=== PATIENT | male | born 1990 | race Caucasian/White ===

== ENCOUNTER 2018-10-18 16:22 | Inpatient (IN) | payer BC ==
[2018-10-18] MEDS ORDERED: Enoxaparin Sodium 60 MG/0.6 ML SYRINGE ONE ×2 (17:45→17:47)
[2018-10-18] MEDS ORDERED: Enoxaparin Sodium 100 MG/ML SYRINGE ONE (17:45)
[2018-10-18] MEDS ORDERED: Nitroglycerin 2% Ointment 1 INCH/1 GM Packet ONE (17:45)
[2018-10-18] MEDS ORDERED: hydrALAZINE 20 MG/ML VIAL SLOW IVP PRN (18:46)
[2018-10-18 18:54] LABS: Troponin I 0.401 ng/mL (< 0.028)
--- NOTE | 2018-10-18 19:44 | HP ---
PRIMARY CARE PROVIDER: None. CHIEF COMPLAINT: Serious chest pain. HISTORY OF PRESENT ILLNESS: This is a 28-year-old male with history of tobacco use, hypertension as a teenager (not currently on medications), family history of early NV in mom, who presents to the emergency room in [place] with a complaint of chest pain. The patient reports onset was 4 days ago and describes it as substernal and onset that occurred after he was fishing for the day. He states he thought that he "pulled my back" and noted that the symptoms eased up. Three days ago, he decreased his activity and states that it simply felt "kind of weird." Two days ago at work with the [employer], he had pain associated with any activity. States that there was intermittent worsening, but really no resolution and the symptoms were worse last night. He describes it as a "need to pop my back" sensation of both pressure and sharp pain that starts in the center of his chest and radiates to his back. He took nitroglycerin and states the symptoms would be relieved for about 10 minutes and then returned. He denies any nausea, vomiting, or abdominal pain. Denies any history of back pain. Also denies any reflux symptoms or headaches. He does report shortness of breath when the pain is worse and difficulty with taking a deep breath because it worsens the pain. In [place], the patient found to be hypertensive, tachycardic with an indeterminate troponin and he received nitroglycerin and started on a drip, aspirin 324 mg, Lopressor 5 mg IV and transferred here. In the emergency room here, the patient remained hypertensive and tachycardic and received Lovenox 1 mg/kg, nitro paste, and the nitroglycerine drip was discontinued and hospitalist called for admission. ALLERGIES: NO KNOWN DRUG ALLERGIES. MEDICATIONS: None. PAST MEDICAL HISTORY: 1. Hypertension as a teenager. The patient reports he does not know why he stopped medication. 2. Obesity. PAST SURGICAL HISTORY: Tonsillectomy. SOCIAL HISTORY: He quit smoking and he used one can of tobacco per day. Uses alcohol monthly. He is and is a full code, and his is his surrogate decision maker. FAMILY HISTORY: An uncle who of a massive NV at 50, mom who had her first NV at 36, dad is healthy. REVIEW OF SYSTEMS: Positive for shortness of breath with exertion and worsening chest pain. Negative for nausea, vomiting, or abdominal pain. All remaining review of systems are reviewed and negative. PHYSICAL EXAMINATION: VITAL SIGNS: Blood pressure is 148/80, pulse 98, respirations 18, sats 99% on room air, and temperature 99.3. GENERAL: Awake, alert, and responsive, in no apparent distress. Able to speak in full sentences. HEENT: Tympanic membranes are translucent. Oral mucosa is pink and moist. NECK: Supple and nontender. LYMPHATICS: No palpable cervical or supraclavicular lymphadenopathy. LUNGS: Clear to auscultation with good air movement. HEART: Normal S1 and S2. Regular rate and rhythm. No audible murmurs. ABDOMEN: Soft with present bowel sounds. Nontender, nondistended. EXTREMITIES: No clubbing, cyanosis, or edema. VASCULAR: 2+ dorsalis pedis pulses. SKIN: No visible rashes. NEUROLOGIC: No focal deficits. PSYCHIATRIC: Appears euthymic. IMAGING DATA: EKGs personally reviewed from [place] and here, sinus rhythm , normal axis, normal intervals. No ST changes. Tachycardic to 101. LABORATORY DATA: Labs reviewed. CBC; 11, 15.4, 47.9, 309 with 67% neutrophils , 23% lymphocytes. Renal panel; 139, 3.9, 105, 25, 12, 0.97, 98. LFTs negative. Troponin 0.155. BNP less than 10. Lipase 27. Urine drug screen negative. Chest x-ray is personally reviewed. No acute abnormality. IMPRESSION: 1. Ongoing chest pain in a patient with cardiac risk factors of history of hypertension, and family history of early myocardial infarction. Symptoms have been ongoing for 4 days and troponin is in the indeterminate range, with a negative D-dimer. Cardiac with normal EKG and cardiac etiology, this is reassuring. 2. History of hypertension, currently hypertensive and tachycardic. 3. Tobacco use. 4. Obesity. PLAN: 1. Observation status in the hospital. 2. Obtain troponins and cardiac stress test tomorrow. 3. Check lipids in the morning, initiate beta billy therapy, manage blood pressure and continue the nitro paste. Prn hydralazine for significantly elevated blood pressures. 4. Tobacco cessation encouraged. 5. The patient encouraged to follow up with a primary care provider for routine medical care. 6. DVT prophylaxis. He is ambulatory. 7. GI prophylaxis, not indicated. 8. Code status is full and surrogate decision maker is the patient's . 9. Discussed with the patient and his . If any abnormalities on telemetry monitoring and a stress test, Cardiology consultation will be warranted. 10. The patient is at high risk given current presentation. 11. No questions or further needs at end of evaluation. Addendum - after dictation, 2nd troponin is positive at 0.4. Pt/ updated with this, and plan changed as follows: 1. d/c stress test 2. NPO after midnight and cardiology consultation with anticipated catheterization 3. Hold further lovenox due to anticipated cath tomorrow 4. Obtain lipid panel with next blood draw and start statin 5. If bp not controlled (when pt was updated his systolic pressure was 110's) - consider adding ROMULO-I. No questions or further needs at end of update - remains at high risk. Job ID: [id number] MTDD
[2018-10-18 20:50] LABS: Cardiac Risk 8.3 (Less than 4.5)
[2018-10-18 20:54] LABS: Troponin I 0.523 ng/mL (< 0.028)
[2018-10-18] MEDS: Nitroglycerin 2% Ointment 1 INCH/1 GM Packet TOP SCH (22:10)
[2018-10-18] MEDS: Acetaminophen 325 MG TAB PO PRN (22:10)
[2018-10-18] MEDS: Metoprolol Tartrate 25 MG TAB PO SCH (22:10)
[2018-10-18] MEDS: Melatonin 3 MG TAB PO PRN (22:10)
[2018-10-18] MEDS: Atorvastatin Calcium 40 MG TAB PO SCH (22:10)
[2018-10-18 23:27] VITALS: BMI 53.2
[2018-10-19 05:26] LABS: #Basophils 0.1 thou/uL (0.0-0.2); #Eosinphils 0.4 thou/uL (0.0-0.7); #Lymphocytes 3.8 thou/uL (1.20-3.40); #Monocytes 0.8 thou/uL (0.11-0.59); #Neutrophils 6.5 thou/uL (1.40-6.50); %Basophils 0.6 % (0.0-1.0); %Eosinophils 3.3 % (0.0-10.0); %Lymphocytes 32.9 % (21.0-51.0); %Monocytes 6.6 % (0.0-10.0); %Neutrophils 56.6 % (42.0-75.0); Hemoglobin 14.6 g/dL (14.0-18.0); Mean Corpuscular Hemoglobin 29.6 pg (27.0-31.0); Mean Corpuscular Volume 89.7 fL (78.0-98.0); Mean Platelet Volume 7.8 fL (7.4-10.4); Platelet Count 277 thou/uL (130-400); RBC Distribution Width 12.4 % (11.5-14.5); Red Blood Cell (RBC) Count 4.94 mill/uL (4.70-6.10); White Blood Cell (WBC) Count 11.4 thou/uL (4.8-10.8)
[2018-10-19] MEDS: Nitroglycerin 2% Ointment 1 INCH/1 GM Packet TOP SCH ×3 (05:48→20:45)
[2018-10-19] MEDS: Sodium Chloride 0.9% 1,000 ML IV SCH ×2 (05:49→15:59)
[2018-10-19 05:50] LABS: Anion Gap 9 mmol/L (10-20); BUN (Urea Nitrogen) 13 mg/dL (8.9-20.6); Calc. Creatinine Clearance 269 mL/min (70-130); Calcium 9.1 mg/dL (7.8-10.44); Carbon Dioxide 28 mmol/L (22-29); Chloride 104 mmol/L (98-107); Estimated GFR-MDRD 86; Glucose 98 mg/dL (70-105); Sodium 137 mmol/L (136-145)
[2018-10-19] MEDS: Aspirin 325 mg Enteric Coated Tablet PO SCH (08:04)
[2018-10-19] MEDS: Metoprolol Tartrate 25 MG TAB PO SCH ×2 (08:04→20:45)
[2018-10-19] MEDS ORDERED: Iopamidol 370 76% 100 ML VIAL ONE (08:55)
--- NOTE | 2018-10-19 09:51 | PDOC.CTH ---
Cardiology Progress Note - Objective Vital Signs Temp Pulse Resp BP Pulse Ox 10/19/18 07:27 97.9 F 81 18 126/69 96 10/19/18 03:00 97.5 F L 72 16 106/56 L 97 Weight 178.035 kg 10/18/18 10/19/18 10/20/18 06:59 06:59 06:59 Intake Total 300 Balance 300 - Labs Result Diagrams: 10/19/18 04:38 10/19/18 04:38 Troponin/CKMB Troponin I 0.523 ng/mL (< 0.028) H* 10/18/18 20:04 - Assessment/Plan HPI: This is a 28 year old M who comes in with exertional chest pain which started 5 days ago. He states that when walking or doing work the pain comes on, pressure/ sharp, substernal, radiating to the back, severe enough to make him sit down, then resolves with 10 minutes of rest. Yesterday while at work the pain came on when he was getting up into a truck and resolved, then the pain came on again while he was at rest in the cab which prompted him to go to the Emergency department. His significant other is a EMT and had nitroglycerin which he had been using and makes it feel better. He is having no chest pain at this time. He is a former smoker, quit 1 year ago, 10 pack-year smoking history. He does use chewing tobacco. He was diagnosed with HTN as a teenager but quit taking medications as he did not need them. His mother had a CABG at age 36, paternal uncle from [place] at age 50. PMH: Obesity, HTN in teens PSH: T&A Meds: none Allergies: NKDA Soc Hx: 10 pack-year smoking history, quit 1 year ago, current chewing tobacco, social drinker, no drugs Fm Hx: Mother CABG 36, paternal uncle from [place] age 50 REVIEW OF SYSTEMS: Gen: no fever, chills, or sweats Neuro: no numbness/tingling, no weakness, denies headache Eyes: no visual changes ENT: no hearing changes, no sore throat, no runny nose Resp: no cough, no SOB, no wheeze Card: see hpi GI: no N/V/D, no abdominal pain MSK: no myalgias, no joint pain/stiffness Skin: no rash, no erythema PHYSICAL EXAMINATION: General: NAD, alert and oriented x3 HEENT: PERRLA, EOMI, normal sclera, oropharynx without erythema or exudate Neck: Supple. Full ROM. Heart/Cardiovascular System: RRR, Cap refill < 3 seconds, no rub, no murmur Lungs/Respiratory System: clear to auscultation bilaterally. No increased work of breathing. Room air. Abdomen/Gastro-Intestinal System: no abdominal tenderness, normal bowel sounds, no masses, no organomegaly, obesity Extremities: Warm extremities. No cyanosis or edema. Neuro: No gross deficits appreciated. CN 2-12 grossly intact Psychiatry: Awake, Alert and cooperative with exam Skin: No lesions, rashes, or ulcers Musculoskeletal: Full ROM A/P: # Stable Angina, suspect type I [place] - Trop 0.155-> 0.401-> 0.523 - EKG t inv in V1, otherwise no Q waves or ST changes - risk factors: strong family history, smoker, obesity, hx of HTN - received therapeutic lovenox in ED, will hold and plan for heart cath pending Dr. Brent marcos, see note to follow - D-dimer neg, no signs of infection, dissection unlikely given age, normal BPs and resolution of pain
[2018-10-19] MEDS: Acetaminophen 325 MG TAB PO PRN (11:19)
--- NOTE | 2018-10-19 12:39 | PDOC.PN ---
- Subjective Encounter Start Date: 10/19/18 (f/u nstemi) Encounter Start Time: 12:36 Subjective: Pt c/o some headache, nitropaste is in place. Had some brief CP -: that resolved with changing positions. Denies any new concerns - Objective Resuscitation Status - Order Detail: 10/18/18 18:44 Resuscitation Status Routine Resuscitation Status: FULL: Full Resuscitation Vital Signs & Weight: Vital Signs (12 hours) Temp Pulse Resp BP Pulse Ox 10/19/18 11:11 97.8 F 71 16 121/58 L 98 10/19/18 07:27 97.9 F 81 18 126/69 96 10/19/18 03:00 97.5 F L 72 16 106/56 L 97 Weight Weight 392 lb 8 oz I&O: 10/18/18 10/19/18 10/20/18 06:59 06:59 06:59 Intake Total 300 Balance 300 Result Diagrams: 10/19/18 04:38 10/19/18 04:38 EKG Reviewed by me: Yes (tele - sinus 70-100's) Phys Exam - Physical Examination Constitutional: NAD Respiratory: no wheezing, no rales, no rhonchi, clear to auscultation bilateral Cardiovascular: RRR, no significant murmur Gastrointestinal: soft, non-tender, no distention, positive bowel sounds Musculoskeletal: no edema Neurological: non-focal, moves all 4 limbs Psychiatric: normal affect Dx/Plan (1) NSTEMI (non-ST elevated myocardial infarction) Code(s): I21.4 - NON-ST ELEVATION (NSTEMI) MYOCARDIAL INFARCTION Status: Acute (2) Dyslipidemia Code(s): E78.5 - HYPERLIPIDEMIA, UNSPECIFIED Status: Acute (3) Tobacco abuse Code(s): Z72.0 - TOBACCO USE Status: Chronic (4) Morbid obesity Code(s): E66.01 - MORBID (SEVERE) OBESITY DUE TO EXCESS CALORIES Status: Chronic (5) Hypertension Code(s): I10 - ESSENTIAL (PRIMARY) HYPERTENSION Status: Chronic - Plan * Cardiology consult - anticipate cath this afternoon * on statin, aspirin, beta-billy and nitropaste. bp's well controlled * * tobacco abuse - pt counseled * morbid obesity - discussed increasing activity * * dvt prophy - received full dose lovenox last night * gi prophy - not indicated * code status full * * reviewed plan of care with patient, no questions or further needs at end of eval.
[2018-10-19] MEDS ORDERED: Lidocaine 1% (PF) 30 ML VIAL ONE (14:20)
[2018-10-19] MEDS ORDERED: Nitroglycerin 100MG/250ML BOT 250 ML ONE (14:26)
[2018-10-19] MEDS ORDERED: Heparin 10,000 UNITS/1 ML VIAL ONE (14:26)
[2018-10-19] MEDS ORDERED: Verapamil 5 MG/2 ML VIAL ONE (14:26)
[2018-10-19] MEDS ORDERED: Fentanyl 100 MCG/2 ML VIAL ONE (14:45)
[2018-10-19] MEDS ORDERED: Midazolam HCl 2 mg/2 ml Vial ONE (14:45)
[2018-10-19] MEDS ORDERED: Sodium Chloride 0.9% 200 ML IV PRN (15:26)
[2018-10-19] MEDS ORDERED: Acetaminophen/Codeine 30-300mg Tablet PO PRN (15:26)
[2018-10-19] MEDS ORDERED: Nitroglycerin 0.4 MG TAB (25 Tab Bottle) SL PRN (15:26)
--- NOTE | 2018-10-19 18:31 | CON ---
DATE OF CONSULTATION: 10/19/2018 REASON FOR CONSULTATION: Non-STEMI. HISTORY OF PRESENT ILLNESS: Mr. Lewis is a very pleasant 28-year-old white gentleman, who comes to the hospital for chest pain. He has been noticing a lot more chest pain recently when he exerts himself, but in the last 2 days, he actually felt pain at rest, so he decided to come in for evaluation. He was admitted and troponins have kept rising, so Cardiology is being consulted for this. On my evaluation, he is chest pain free. PAST MEDICAL HISTORY: None. PAST SURGICAL HISTORY: Tonsillectomy. FAMILY HISTORY: Uncle of an IA at age 50. Mother had first IA at age 36 and has bypass. Father is healthy otherwise. SOCIAL HISTORY: Quit smoking, but he has been continuing to use chewing tobacco. Monthly alcohol use. No drug use. REVIEW OF SYSTEMS: A 12-point review of systems was done and was all negative unless stated in history of present illness. OUTPATIENT MEDICATIONS: None. ALLERGIES: NO KNOWN DRUG ALLERGIES. PHYSICAL EXAMINATION: VITAL SIGNS: Temperature 97.8, pulse 79, respiratory rate 16, sat 98% on room air, and blood pressure 120/58. GENERAL: Awake, alert, oriented x3. No distress. HEENT: Normocephalic and atraumatic. NECK: Supple. LUNGS: Clear. CARDIOVASCULAR: S1 and S2. No S3 or S4. No murmurs. ABDOMEN: Soft. Positive bowel sounds. EXTREMITIES: No edema. SKIN: Warm and dry. LABORATORY DATA: Laboratory work was reviewed. CBC with a white count of 11, hemoglobin of 14, hematocrit of 44, platelet count 277. Chemistry with unremarkable basic metabolic profile. His troponin went from 0.1, then 0.4, then 0.5. Triglycerides of 205, cholesterol total of 232, LDL of 163, HDL of 28. ASSESSMENT: 1. [id number] myocardial infarction. 2. Obesity. 3. Remote history of hypertension as a child, but has not been on any medication and blood pressures remained fairly normal here. PLAN: 1. Definitely high risk for coronary artery disease given his family history and tobacco use. We will plan on further risk stratification with a heart catheterization. We spoke at length with risks and benefits of the procedure. Risks included, but not limited to stroke, IA, , bleeding, need for blood transfusion, limb loss, organ loss. He understands, verbalized understanding of this and agrees to proceed. We will do radial access as he is 390 pounds. 2. Further recommendations per results of coronary angiogram. Job ID: [id number]
[2018-10-19] MEDS: Melatonin 3 MG TAB PO PRN (20:45)
[2018-10-19] MEDS: Atorvastatin Calcium 40 MG TAB PO SCH (20:45)
--- NOTE | 2018-10-19 21:28 | CON ---
DATE OF CONSULTATION: HISTORY OF PRESENT ILLNESS: Mr. Lewis is a 28-year-old gentleman who presented to the emergency room in [place] with chest pain, shortness of breath that had been at least 4 days ongoing. He was tachycardic at that time. His initial troponin was 0.40. His EKG showed no ST changes. He was medically managed and transferred here to [facility] for further workup. He was seen by Dr. Kennedy and taken for cardiac catheterization today. Catheterization revealed severe 3-vessel disease. His ejection fraction is difficult to assess on ventriculogram, but probably in the 30% to 40% range. The patient's triglyceride count is 205. His cholesterol is 232. Of note, he is 6 feet tall and 392 pounds. BSA is 3.0. On arrival in the room to talk to this gentleman, he had a lip full of chewing tobacco. When I asked him about the tobacco, he said that is what he does. He has a lot of stress in his life and that is how he manages it. He was proud of himself for quitting smoking 10 years ago. He has no previous cardiac events. PAST MEDICAL HISTORY: History of hypertension as a child, but he has been untreated since that time. PAST SURGICAL HISTORY: Tonsillectomy. SOCIAL HISTORY: He is . He uses smokeless tobacco. He drinks alcohol on a regular basis. ALLERGIES: NONE. PHYSICAL EXAMINATION: GENERAL: This is a morbidly obese gentleman without complaint on the telemetry unit. VITAL SIGNS: Temperature is 98.5, pulse is 76 and regular, blood pressure is 131/72. HEENT: Sclerae nonicteric. Pupils are equal and round bilaterally. NECK: Supple without bruit. CHEST: Clear bilaterally with distant breath sounds. His chest depth from the bed to the top of his chest is the length of my fingers extended to my elbow. HEART: Rhythm is regular without murmur. ABDOMEN: Morbidly obese. Soft and nontender. EXTREMITIES: He has no varicose veins. PSYCHIATRIC: The patient is awake, alert, and oriented to person, place, and time. LABORATORY DATA: Of note, potassium is 4.0, creatinine is 1.02. Hemoglobin is 14.6, platelet count is 277,000. ASSESSMENT AND PLAN: I have reviewed the situation with Dr. Kennedy. Due to the patient's morbid obesity, depth of his chest, and total disregard for his own health, I think he would be better managed medically. He is at extraordinarily high risk for sternal nonunion, which would be disabling in his situation. Any sort of wound infection would also put him at high risk, which he is obviously at high risk for any way. Job ID: [id number]
[2018-10-20] MEDS: Nitroglycerin 2% Ointment 1 INCH/1 GM Packet TOP SCH ×2 (05:33→13:07)
[2018-10-20 06:09] LABS: Anion Gap 9 mmol/L (10-20); BUN (Urea Nitrogen) 10 mg/dL (8.9-20.6); Calc. Creatinine Clearance 315 mL/min (70-130); Calcium 8.8 mg/dL (7.8-10.44); Carbon Dioxide 26 mmol/L (22-29); Chloride 106 mmol/L (98-107); Estimated GFR-MDRD Greater than 90; Glucose 90 mg/dL (70-105); Potassium 4.3 mmol/L (3.5-5.1); Sodium 137 mmol/L (136-145)
[2018-10-20 06:15] LABS: Critical Call Chem Troponin I RESULT DECREASING; Troponin I 0.374 ng/mL (< 0.028)
[2018-10-20] MEDS: Aspirin 325 mg Enteric Coated Tablet PO SCH (08:00)
[2018-10-20] MEDS: Metoprolol Tartrate 25 MG TAB PO SCH (08:01)
--- NOTE | 2018-10-20 11:50 | PDOC.CTH ---
Cardiology Progress Note - Subjective No chest pain. No other issues. Right radial site healing well. - Objective Vital Signs Temp Pulse Resp BP Pulse Ox 10/20/18 11:16 97.7 F 66 16 116/54 L 97 10/20/18 07:29 98.1 F 70 16 122/59 L 97 10/20/18 04:22 97.7 F 67 18 100/52 L 96 Weight 391 lb 5 oz 10/19/18 10/20/18 10/21/18 06:59 06:59 06:59 Intake Total 300 1457 Balance 300 1457 - Physical Examination General/Neuro: alert & oriented x3, NAD Neck: no JVD present Lungs: CTA, unlabored respirations Heart: RRR Abdomen: NT/ND Extremities: + edema B (1+) - Telemetry Telemetry Rhythm: NSR - Labs Result Diagrams: 10/19/18 04:38 10/20/18 05:35 Troponin/CKMB Troponin I 0.374 ng/mL (< 0.028) H* 10/20/18 05:35 - Assessment/Plan 1. Severe multivessel CAD. 2. Morbid obesity, BMI 53 3. Tobacco use (chewing tobacco) 4. Family Hx of CAD. PLAN: - High risk for surgery. - Appreciate CT surgery input. - Will plan to send to [facility] for either high risk PCI versus high risk CABG. I spoke with Dr. Mehta and he accepted.
--- NOTE | 2018-10-20 12:58 | DIS ---
DATE OF ADMISSION: 10/18/2018 DATE OF DISCHARGE: 10/20/2018 CONSULTANTS: Dr. Kennedy of Cardiology. DISCHARGE DISPOSITION: [facility] in [place] for high-risk PCI versus high-risk CABG. FINAL DIAGNOSES: 1. Severe multivessel coronary artery disease. 2. Non-ST Elevation PR 3. Morbid obesity with a BMI of 53. 4. Tobacco use. 5. Family history of early coronary artery disease. 6. Dyslipidemia. HISTORY OF PRESENT ILLNESS: Mr. Lewis is a 28-year-old male, who presented to the emergency room with onset of chest pain that started 3 days prior. It was intermittently worsening, substernal in nature, and no precipitating or relieving factors. He has a history of hypertension as a child, however, had not been on medications for some time and did not remember why. He also has a family history of early PR, and his mom had her first heart attack at age 36. For these reasons and a troponin that was slightly positive, the patient was admitted to the inpatient status. HOSPITAL COURSE: The patient received full-dose Lovenox and nitroglycerin paste in the emergency room. He was evaluated the following day by Dr. Kennedy and underwent cardiac catheterization, which showed multivessel disease. Dr. Bhatti of Cardiovascular Surgery was consulted, who declined CABG at this facility due to high-risk nature. Dr. Kennedy has contacted Dr. Mehta at [facility], who has accepted the patient in transfer. The patient has been managed on low-dose beta-billy, full-dose aspirin, continuing the nitroglycerin paste, and he remains pain free. He will be transferred for consideration of PCI versus high-risk CABG. The patient does meet criteria for discharge by ambulance with the same medications. His blood pressures have been well controlled and ranged from the 100s to the 130s systolic over the past 24 hours. PHYSICAL EXAMINATION: On day of discharge, VITAL SIGNS: Blood pressure 116/54, temperature 97.7, pulse 66, respirations 16, saturations 97% on room air. GENERAL: Awake, alert, and responsive, in no apparent distress. Able to speak in full sentences. LUNGS: Clear to auscultation bilaterally. HEART: Normal S1 and S2. Regular rate and rhythm. No audible murmurs. ABDOMEN: Soft with present bowel sounds. Nontender and nondistended. EXTREMITIES: No pitting edema. CONTRERAS FINDINGS AND TEST RESULTS: CBC on admission; 11.4, 14.6, 44.3, 277. Chemistry; 137, 4.3, 106, 26, 10, 0.87, 90. Troponin 0.401, 0.523, 0.374. Triglycerides 205, cholesterol 232, LDL 163, HDL 28. Echocardiogram shows an EF of 50% to 55% with some inferior hypokinesis, mildly dilated left atrium and mild mitral regurgitation and tricuspid regurgitation. Catheterization procedure report shows severe multivessel CAD, severe mid LAD, severe proximal large OM1, severe mid left circumflex, moderate mid RCA, severe RPL, subtotaled RPDA with a normal LV function and a normal LVEDP. DIET: Heart-healthy. ACTIVITY: As tolerated. Reviewed with the patient and his this hospitalization, the recommendation for transfer, and they both agree. Total time coordinating discharge is 30 minutes. Job ID: [id number] MTDD
[2018-10-20 15:02] VITALS: BP 140/79; TEMP 98.2
== END 2018-10-20 19:36 | disposition short-term general hospital (02) | DRG 281 ==
LOC: ERS 16:22 → 2NO 19:05
PROVIDERS: ADMIT Family Medicine; ATTEND Family Medicine
PROC: 4A023N7 Measurement of Cardiac Sampling and Pressure, Left Heart, Percutaneous Approach (ICD-10-PCS; principal; 2018-10-18)
PROC: B2111ZZ Fluoroscopy of Multiple Coronary Arteries using Low Osmolar Contrast (ICD-10-PCS; 2018-10-18)
PROC: B2151ZZ Fluoroscopy of Left Heart using Low Osmolar Contrast (ICD-10-PCS; 2018-10-18)
DX: I21.4 Non-ST elevation (NSTEMI) myocardial infarction (principal); Z68.43 Body mass index [BMI] 50.0-59.9, adult; I10 Essential (primary) hypertension; E78.5 Hyperlipidemia, unspecified; E66.01 Morbid (severe) obesity due to excess calories; I25.10 Atherosclerotic heart disease of native coronary artery without angina pectoris; Z87.891 Personal history of nicotine dependence; Z90.89 Acquired absence of other organs
CPT/HCPCS: 36415; 80048; 80061; 84484; 85025; 90471; 90732; 93005; 93306; 93458; 96372; 99152; 99153; C1769; G0009; J1644; J1650; J2001; J2250; J3010; Q9967

== ENCOUNTER 2018-12-04 12:34 | Outpatient (CLI) | payer BC ==
--- NOTE | 2018-12-04 13:40 | ULT ---
Duplex sonogram right groin HISTORY: Recent catheterization. Right groin pain. FINDINGS: Good color and spectral Doppler flow within the right common femoral artery and vein at the level of the groin. No internal thrombus. No adjacent fluid collections. IMPRESSION: No significant abnormalities are demonstrated.
== END 2018-12-04 12:35 | disposition home or self-care (01) ==
LOC: ULT 12:34
PROVIDERS: ATTEND Internal Medicine Cardiovascular Disease
DX: R10.31 Right lower quadrant pain (principal)
CPT/HCPCS: 93926

== ENCOUNTER 2023-08-03 19:14 | Inpatient (IN) | payer SELFPAY ==
[2023-08-03] MEDS ORDERED: Ondansetron PF 4 MG/2 ML Vial IVP PRN (21:58)
[2023-08-03] MEDS ORDERED: Ondansetron ODT 4 MG TAB PO PRN ×2 (21:58→22:35)
[2023-08-03] MEDS ORDERED: Lorazepam 1 MG TAB PO PRN (22:35)
[2023-08-03] MEDS ORDERED: Lorazepam 2 MG/ML VIAL IM PRN (22:35)
[2023-08-03] MEDS ORDERED: Electrolyte Replacement Protocol 1 EACH FS SCH (22:45)
[2023-08-03 22:52] VITALS: BMI 39.1
[2023-08-03] MEDS: HYDROcodone/Acetaminophen 5/325 mg Tablet PO PRN (23:18)
[2023-08-03] MEDS: Lorazepam 1 MG TAB PO SCH (23:18)
[2023-08-03] MEDS: Thiamine HCl 200 MG/2 ML VIAL SLOW IVP SCH (23:19)
[2023-08-03 23:41] LABS: HBSAg Index 0.27 S/CO (0-0.99); Hep B Surf Ag Non-Reactive S/CO (NonReactive); Hep C IgG Ab Non-Reactive S/CO (NonReactive); Hep C Index 0.08 S/CO (0-0.79)
[2023-08-03 23:43] LABS: HBCM Index 0.08 S/CO (0-0.79); Hepatitis B Core IgM Abs Non-Reactive S/CO (NonReactive)
[2023-08-03] MEDS: cefTRIAXone\\ROCEPHIN 1 GM in Sodium Chloride 0.9% 100 ML IVPB SCH (23:56)
[2023-08-03] MEDS: Folic Acid 1 MG TAB PO SCH (23:56)
[2023-08-03] MEDS: Multivit, Therapeutic 1 TAB PO SCH (23:56)
[2023-08-04] MEDS: Acetylcysteine 20% (200mg/mL) 15,000 MG in Dextrose 5% in Water 200 ML IV SCH (00:14)
[2023-08-04 00:26] LABS: Hep A IgM AB Non-Reactive (NonReactive)
[2023-08-04 00:27] LABS: Hep A IgM S/CO 0.15 S/CO (0-0.79)
[2023-08-04 00:28] LABS: Troponin I Less than 0.010 ng/mL (< 0.028)
[2023-08-04] MEDS: Acetylcysteine 20% (200mg/mL) 5,000 MG in Dextrose 5% in Water 500 ML IV SCH (02:14)
[2023-08-04 05:15] LABS: #Basophils 0.03 10x3/uL (0.0-0.2); %Basophils 0.5 % (0.0-1.0); %Eosinophils 2.9 % (0.0-10.0); %Monocytes 5.6 % (0.0-10.0); %Neutrophils 68.5 % (42.0-75.0); Hemoglobin 14.1 g/dL (14.0-18.0); Mean Corpuscular HGB CONC 33.6 g/dL (32.0-36.0); Mean Corpuscular Volume 92.3 fL (78.0-98.0); Mean Platelet Volume 10.3 fL (7.4-10.4); Platelet Count 217 10x3/uL (130-400); RBC Distribution Width 13.5 % (11.5-14.5); Red Blood Cell (RBC) Count 4.55 mill/uL (4.70-6.10)
[2023-08-04 05:23] LABS: Hemoglobin A1c 4.8 % (4.0-6.0)
[2023-08-04 05:39] LABS: ALT (SGPT) 518 U/L (8-55); AST (SGOT) 268 U/L (5-34); Albumin 3.4 g/dL (3.5-5.0); Alkaline Phosphatase 132 U/L (40-110); Anion Gap 10 mmol/L (10-20); BUN (Urea Nitrogen) 8 mg/dL (8.9-20.6); Bilirubin, Total 5.2 mg/dL (0.2-1.2); Calc. Creatinine Clearance 282 mL/min (70-130); Calcium 8.4 mg/dL (7.8-10.44); Carbon Dioxide 25 mmol/L (22-29); Chloride 102 mmol/L (98-107); Estimated GFR 123; Globulin 2.4 g/dL (2.4-3.5); Glucose 103 mg/dL (70-105); Iron 184 ug/dL (65-175); Magnesium 1.9 mg/dL (1.6-2.6); Potassium 3.6 mmol/L (3.5-5.1); Protein, Total 5.8 g/dL (6.0-8.3); Sodium 133 mmol/L (136-145)
[2023-08-04] MEDS: metroNIDAZOLE 500 MG in Premix 1 BAG IVPB SCH (06:11)
[2023-08-04] MEDS: Acetylcysteine 20% (200mg/mL) 10,000 MG in Dextrose 5% in Water 1,000 ML IV SCH (06:15)
[2023-08-04] MEDS: Folic Acid 1 MG TAB PO SCH (08:49)
[2023-08-04] MEDS: Multivit, Therapeutic 1 TAB PO SCH (08:50)
[2023-08-04] MEDS: Magnesium 2 GM/50 ML(in water) 2 GM in Premix 1 BAG IVPB SCH (08:50)
[2023-08-04] MEDS: Enoxaparin 40 MG (0.4 mL) SYRINGE SC SCH (08:50)
[2023-08-04] MEDS ORDERED: Famotidine 20 MG TAB PO SCH (09:00)
[2023-08-04] MEDS ORDERED: Lorazepam 1 MG TAB PO PRN (22:35)
[2023-08-05 04:00] LABS: #Basophils Less than 0.03 10x3/uL (0.0-0.2); %Basophils 0.4 % (0.0-1.0); %Lymphocytes 35.3 % (21.0-51.0); %Monocytes 8.3 % (0.0-10.0); %Neutrophils 51.6 % (42.0-75.0); Hematocrit 42.1 % (42.0-52.0); Hemoglobin 13.8 g/dL (14.0-18.0); Mean Corpuscular HGB CONC 32.8 g/dL (32.0-36.0); Mean Corpuscular Hemoglobin 30.9 pg (27.0-31.0); Mean Corpuscular Volume 94.4 fL (78.0-98.0); Mean Platelet Volume 9.8 fL (7.4-10.4); Platelet Count 229 10x3/uL (130-400); RBC Distribution Width 13.8 % (11.5-14.5); Red Blood Cell (RBC) Count 4.46 mill/uL (4.70-6.10)
[2023-08-05 04:17] LABS: ALT (SGPT) 440 U/L (8-55); AST (SGOT) 193 U/L (5-34); Albumin 3.5 g/dL (3.5-5.0); Alkaline Phosphatase 154 U/L (40-110); Anion Gap 9 mmol/L (10-20); BUN (Urea Nitrogen) 5 mg/dL (8.9-20.6); Bilirubin, Total 2.7 mg/dL (0.2-1.2); Calc. Creatinine Clearance 260 mL/min (70-130); Calcium 8.9 mg/dL (7.8-10.44); Carbon Dioxide 27 mmol/L (22-29); Chloride 107 mmol/L (98-107); Estimated GFR 120; Globulin 2.7 g/dL (2.4-3.5); Glucose 96 mg/dL (70-105); Potassium 3.9 mmol/L (3.5-5.1); Protein, Total 6.2 g/dL (6.0-8.3); Sodium 139 mmol/L (136-145)
[2023-08-05] MEDS ORDERED: Lorazepam 1 MG TAB PO PRN (22:35)
[2023-08-05] MEDS: Lorazepam 0.5 MG TAB PO SCH (23:35)
[2023-08-06 05:29] LABS: #Basophils 0.04 10x3/uL (0.0-0.2); %Basophils 0.6 % (0.0-1.0); %Eosinophils 3.8 % (0.0-10.0); %Lymphocytes 32.3 % (21.0-51.0); %Monocytes 7.1 % (0.0-10.0); %Neutrophils 55.6 % (42.0-75.0); Hematocrit 43.5 % (42.0-52.0); Hemoglobin 14.1 g/dL (14.0-18.0); Mean Corpuscular HGB CONC 32.4 g/dL (32.0-36.0); Mean Corpuscular Hemoglobin 30.7 pg (27.0-31.0); Mean Corpuscular Volume 94.8 fL (78.0-98.0); Mean Platelet Volume 9.9 fL (7.4-10.4); Platelet Count 231 10x3/uL (130-400); RBC Distribution Width 13.9 % (11.5-14.5); Red Blood Cell (RBC) Count 4.59 mill/uL (4.70-6.10)
[2023-08-06 05:43] LABS: ALT (SGPT) 351 U/L (8-55); AST (SGOT) 119 U/L (5-34); Albumin 3.5 g/dL (3.5-5.0); Alkaline Phosphatase 143 U/L (40-110); Anion Gap 10 mmol/L (10-20); BUN (Urea Nitrogen) 11 mg/dL (8.9-20.6); Bilirubin, Total 1.7 mg/dL (0.2-1.2); Calc. Creatinine Clearance 248 mL/min (70-130); Calcium 8.9 mg/dL (7.8-10.44); Carbon Dioxide 25 mmol/L (22-29); Chloride 106 mmol/L (98-107); Estimated GFR 119; Globulin 2.7 g/dL (2.4-3.5); Glucose 93 mg/dL (70-105); Protein, Total 6.2 g/dL (6.0-8.3); Sodium 137 mmol/L (136-145)
[2023-08-06] MEDS ORDERED: CEFAZOLIN 2 GM in Sodium Chloride 0.9% 100 ML IVPB SCH (12:45)
[2023-08-06] MEDS ORDERED: Sodium Chloride 0.9% 100 ML ONE (12:51)
[2023-08-06] MEDS ORDERED: CEFAZOLIN 2 GM VIAL ONE (12:51)
[2023-08-06] MEDS ORDERED: Bupivacaine 0.25% HCL 30 ML VIAL ONE (13:06)
[2023-08-06] MEDS ORDERED: EPINEPHrine 1 MG/ML VIAL ONE (13:06)
[2023-08-06] MEDS ORDERED: Lidocaine 2% PF 5 ML VIAL ONE (13:10)
[2023-08-06] MEDS ORDERED: Rocuronium Bromide 10 MG/ML (10ML VIAL) ONE (13:10)
[2023-08-06] MEDS ORDERED: fentaNYL PF 100 MCG/2 ML SYRINGE ONE ×2 (13:11→14:55)
[2023-08-06] MEDS ORDERED: PROPOFOL 20 ML ONE ×2 (13:11→13:18)
[2023-08-06] MEDS ORDERED: Midazolam HCl 2 mg/2 ml Vial ONE (13:12)
[2023-08-06] MEDS ORDERED: Esmolol 100 MG/10 ML VIAL ONE (13:21)
[2023-08-06] MEDS ORDERED: Dexamethasone 20 MG/5 ML VIAL ONE (13:26)
[2023-08-06] MEDS ORDERED: HYDROmorphone 2 MG/ML VIAL ONE (13:26)
[2023-08-06] MEDS ORDERED: Ondansetron PF 4 MG/2 ML Vial ONE (13:26)
[2023-08-06] MEDS ORDERED: Ketorolac Tromethamine 30 MG (1 mL) VIAL ONE (13:26)
[2023-08-06] MEDS ORDERED: HYDROmorphone 2 MG/ML VIAL SLOW IVP PRN (13:37)
[2023-08-06] MEDS ORDERED: Promethazine HCl 25 MG/ML VIAL IM PRN ×2 (13:37→14:15)
[2023-08-06] MEDS ORDERED: PACU-Morphine 4MG/ML VIAL SLOW IVP PRN (13:37)
[2023-08-06] MEDS ORDERED: Ondansetron HCl/PF 4 MG/2 ML Vial IVP PRN ×2 (13:37→14:15)
[2023-08-06] MEDS ORDERED: ePHEDrine Sulfate 50 MG/10 ML VIAL ONE (13:47)
[2023-08-06] MEDS ORDERED: SUGAMMADEX SODIUM 200 MG/2 ML VIAL ONE (14:06)
[2023-08-06] MEDS ORDERED: Promethazine HCl 25 MG/ML VIAL ONE (15:00)
[2023-08-06] MEDS: Morphine 4 MG/ML VIAL SLOW IVP PRN (16:26)
[2023-08-06] MEDS: Thiamine 100 MG TAB PO SCH (20:01)
[2023-08-06] MEDS ORDERED: Lorazepam 0.5 MG TAB PO PRN (22:35)
[2023-08-07] MEDS: diphenhydrAMINE 25 MG CAP PO SCH (01:08)
[2023-08-07 05:30] LABS: #Basophils Less than 0.03 10x3/uL (0.0-0.2); #Eosinphils Less than 0.03 10x3/uL (0.0-0.7); %Basophils 0.1 % (0.0-1.0); %Eosinophils 0.1 % (0.0-10.0); %Lymphocytes 13.5 % (21.0-51.0); %Monocytes 5.5 % (0.0-10.0); %Neutrophils 80.4 % (42.0-75.0); Hematocrit 44.6 % (42.0-52.0); Hemoglobin 14.6 g/dL (14.0-18.0); Mean Corpuscular HGB CONC 32.7 g/dL (32.0-36.0); Mean Corpuscular Hemoglobin 30.5 pg (27.0-31.0); Mean Corpuscular Volume 93.3 fL (78.0-98.0); Mean Platelet Volume 10.6 fL (7.4-10.4); Platelet Count 242 10x3/uL (130-400); RBC Distribution Width 13.4 % (11.5-14.5); Red Blood Cell (RBC) Count 4.78 mill/uL (4.70-6.10)
[2023-08-07 06:51] LABS: ALT (SGPT) 347 U/L (8-55); AST (SGOT) 132 U/L (5-34); Albumin 3.6 g/dL (3.5-5.0); Alkaline Phosphatase 143 U/L (40-110); Anion Gap 14 mmol/L (10-20); BUN (Urea Nitrogen) 9 mg/dL (8.9-20.6); Bilirubin, Total 1.4 mg/dL (0.2-1.2); Calc. Creatinine Clearance 289 mL/min (70-130); Calcium 9.1 mg/dL (7.8-10.44); Carbon Dioxide 22 mmol/L (22-29); Chloride 103 mmol/L (98-107); Estimated GFR 124; Globulin 2.7 g/dL (2.4-3.5); Glucose 92 mg/dL (70-105); Potassium 4.3 mmol/L (3.5-5.1); Protein, Total 6.3 g/dL (6.0-8.3); Sodium 135 mmol/L (136-145)
[2023-08-07 08:15] VITALS: BP 137/82; TEMP 98.3
[2023-08-09 13:33] LABS: EliA Vaculitis New Method **** NEW METHOD ****; Mitochondrial Ab 1.1 U/mL (<4 Negative)
== END 2023-08-07 12:45 | disposition home or self-care (01) | DRG 419 ==
LOC: T4-A 21:19
PROVIDERS: ADMIT Internal Medicine; ATTEND Internal Medicine
PROC: 0FT44ZZ Resection of Gallbladder, Percutaneous Endoscopic Approach (ICD-10-PCS; principal; 2023-08-06)
PROC: 3E033XZ Introduction of Vasopressor into Peripheral Vein, Percutaneous Approach (ICD-10-PCS; 2023-08-06)
DX: K80.10 Calculus of gallbladder with chronic cholecystitis without obstruction (principal); K72.90 Hepatic failure, unspecified without coma; I10 Essential (primary) hypertension; E78.5 Hyperlipidemia, unspecified; R16.0 Hepatomegaly, not elsewhere classified; K82.8 Other specified diseases of gallbladder; I25.10 Atherosclerotic heart disease of native coronary artery without angina pectoris; F10.90 Alcohol use, unspecified, uncomplicated; Z98.84 Bariatric surgery status; Z71.41 Alcohol abuse counseling and surveillance of alcoholic
CPT/HCPCS: 36415; 74181; 76700; 78227; 80053; 80074; 82103; 82390; 82728; 83036; 83516; 83540; 83735; 84145; 85025; 85379; 86015; 87040; 88304; 93306; A9537; C1713; J0132; J0171; J0665; J0696; J1100; J1170; J1650; J1885; J2001; J2250; J2270; J2405; J2550; J2704; J3411; J3475; J3490; J7070